=== PATIENT | male | born 1975 ===

== ENCOUNTER 2024-03-26 11:01 | Emergency (ER) | payer BC, SELFPAY ==
[2024-03-26 11:14] VITALS: BP 144/86
--- NOTE | 2024-03-26 11:43 | ED.GENMED ---
History of Present Illness
General
Chief Complaint: Head Injury
Source: patient
Exam Limitations: none
Time Seen by Provider: 03/26/24 11:37
Nursing documentation reviewed up to this point in time: agreed with
History of Present Illness
History of Present Illness:
48 y/o M with h/o CAD, ID s/p PCI
on plavix
here with headache and R sided neck pain after injury last night while playing ice hockey, he slid into the boards, thinks he hit his legs first and then head
was wearing helmet
no LOC
was ok last night
woke up with mild headache, nausea, brain fog, right sided neck pain
no numbnes/tingling/weakness, fever, chills vision changes, passing out, amnesia
Past History
Past History
ED Past Medical History: CAD, Hypercholesterolemia and ID
ED Past Surgical History: None
Social History
Tobacco: Non-smoker
Alcohol: None
Review of Systems
Review of Systems
Allergies reviewed?: Yes
All Other Systems: Not applicable
Phy Exam
Physical Exam
Physical Exam:
GENERAL: Alert , in no apparent distress
HEAD: NCAT
NECK: no midline tenderness, active ROM intact right-sided paraspinal and trapezius tenderness on the right
EYE: pupils equal and reactive, EOMs intact.
ENT: o/p clr, mmm. no hemotympanum
CARDIAC: Regular rate and rhythm, no edema
LUNGS: Clear breath sounds bilaterally, no acute respiratory distress, no wheezes/rales/rhonchi
ABDOMEN: Soft, without focal tenderness, no r/g, no cvat
NEUROLOGICAL: Alert and oriented, no focal neuro deficits, CN intact, 5/5 strength, sensation intact
SKIN: Warm and dry,
MUSCULOSKELETAL: No edema, well perfused.
PSYCH: Normal and appropriate interaction.
Course
Orders/Labs/Results
Orders:
Orders
03/26/24 11:[address] [CT Head W/o Iv Contrast] Urgent
Comment:
Reason For Exam: fall on plavix
03/26/24 11:49
CT Cervical Spine W/o Iv Contr Urgent
Comment:
Reason For Exam: neck pain s/p hockey injury
Vital Signs
Initial and Last Documented VS:
Initial Vital Signs
Temp Pulse Resp BP Pulse Ox
98.5 F 82 18 144/86 97
03/26/24 11:14 03/26/24 11:14 03/26/24 11:14 03/26/24 11:14 03/26/24 11:14
Last Documented Vital Signs
Temp Pulse Resp BP Pulse Ox
98.5 F 70 18 138/87 98
03/26/24 11:14 03/26/24 13:33 03/26/24 11:14 03/26/24 13:33 03/26/24 13:33
MDM/Problems Addressed
Differential Diagnosis Includes:
concussion, cervical strain
MDM/Problems Addressed:
48 y/o M
helmet yetserday fall into the boards while playing hocket
no loc
on plavix
today woke up with brain fog, headache,nausea, lightheadendsss, mild symptoms and some right sided neck soreness
no weakness/numbness tinging
on exa neuro intact
more right sided trap tednerness
ct head shows ? chiaric malformation but otherwisse neg
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
pt was unaware of this
givencopyies of reports
f/u with ortho/spine and pcp
*Critical Care Note
Total Time (30-74mins, 75-104mins- exclusive of procedures): Not Applicable
ED Attending Note
-
Portions of this chart may have been created with voice recognition software.� Occasional wrong word or��sound alike� substitutions may have occurred due to the inherent limitations of voice recognition software.
Discharge Plan
Departure
Patient Disposition: Home (Routine Discharge)
Date of Disposition: 03/26/24
Time of Disposition: 13:25
Patient with high blood pressure during this ER visit?: No
Condition: Fair
Covid-19: Not Applicable
Discharge Problem:
Concussion, Cervical sprain
Instructions: Concussion, Adult (DC), Cervical Sprain ED
Prescriptions:
No Action
nitroglycerin 0.4 MG tablet, sublingual
0.4 mg sublingual [id number] PRN (Reason: chest pain ) Qty: 25 5RF
atorvastatin 40 MG tablet
40 mg PO QPM
aspirin 81 MG tablet,delayed release (DR/EC)
81 mg PO DAILY
ticagrelor [Brilinta] 90 MG tablet
90 mg PO BID
amoxicillin-pot clavulanate 875-125 mg tablet
1 tab PO BID Qty: 20 0RF
Referrals:
Hang Carter, DO [Family Provider] - Follow up in 2-3 days
Stand Alone Forms: Return to Work
Activity Restrictions/Additional Instructions:
You likely have a mild concussion
for this we recommend 48 hours of brain rest to help your brain heal and your headache improve.
also use tylenol every 6 hours
for your neck, heat off and on as needed.
After 48 hours he can return to work
if you are getting headaches, you may need to stop work early. You need to see your family doctor to be cleared to return back to hockey
For your neck you likely sprained the muscles. You can apply heat, take Tylenol, rest. Return for any concerns
THERE WAS A SMALL IRREGULARITY IN YOUR CERVICAL SPINE THAT IS LIKEY A CONGENTIAL VARIANT
FOLLOW UP WITH ORTHOPEDICS
return to the er for: worsening pain, vomiting, confusion, weakness, numbness/tingling in arms or legs or any concerns.
Interventions
Interventions:
*Risk Screen - Suicide Last Done: 03/26/24 11:14
*General Assessment Last Done: 03/26/24 11:14
*Neglect/Abuse Screening Last Done: 03/26/24 11:14
*Nursing Disposition Last Done: 03/26/24 13:33
ED- Neurological Assessment Last Done: 03/26/24 13:29
ED-Skin Assessment Last Done: 03/26/24 13:29
Discharge Date and Time
Discharge Date/Time: 03/26/24 13:41
Print Language: [email or web address]
[2024-03-26 13:29] VITALS: BP 138/87
[2024-03-26 13:33] VITALS: BP 138/87
== END 2024-03-26 13:41 | disposition home or self-care (01) ==
LOC: EMR 11:01
PROVIDERS: EMERGENCY PHYSICIAN Student in an Organized Health Care Education/Training Program; FAMILY PHYSICIAN Family Medicine
DX: S06.0X0A Concussion without loss of consciousness, initial encounter (principal); R11.0 Nausea; W18.39XA Other fall on same level, initial encounter; Y93.22 Activity, ice hockey; S13.4XXA Sprain of ligaments of cervical spine, initial encounter; I25.10 Atherosclerotic heart disease of native coronary artery without angina pectoris; E78.00 Pure hypercholesterolemia, unspecified; K58.9 Irritable bowel syndrome, unspecified; F41.9 Anxiety disorder, unspecified; F32.A Depression, unspecified; I25.2 Old myocardial infarction; Z95.5 Presence of coronary angioplasty implant and graft
CPT/HCPCS: 99284; 70450; 72125

== ENCOUNTER 2024-12-22 08:09 | Emergency (ER) | payer BC, SELFPAY ==
[2024-12-22 08:10] VITALS: BP 157/92
[2024-12-22 09:54] VITALS: BMI 25.8
[2024-12-22 10:09] LABS: % Basophils 0.3 % (0-2); % Eosinophils 0.2 % (0-6); % Immature Granulocytes 0.2 % (0-0.5); % Monocytes 8.5 % (1.7-9.3); % Neutrophils 82.8 % (42.2-75.2); Hematocrit 44.1 % (39.0-52.0); Hemoglobin 14.8 g/dL (13.0-18.0); Mean Corp Hgb Conc. 33.6 g/dL (33.0-37.0); Mean Corpuscular Hgb 27.4 pg (27.0-31.0); Mean Corpuscular Volume 81.7 fL (80.0-94.0); Mean Platelet Volume 10.7 fL (7.4-10.4); Nucleated Red Blood Cells % 0 % (-); Platelet Count 170 10^3/uL (130-400); Red Cell Dist. Width 12.7 % (11.5-14.5); White Blood Cell Count 12.1 10^3/uL (4.8-10.8)
[2024-12-22 10:24] LABS: ALT (SGPT) 20 U/L (0-50); AST (SGOT) 17 U/L (17-59); Albumin 4.3 g/dl (3.5-5.0); Alkaline Phosphatase 79 U/L (38-126); Blood Urea Nitrogen 14 mg/dl (9-20); Calcium 9.6 mg/dl (8.4-10.2); Carbon Dioxide 29 mmol/L (22-30); Chloride 103 mmol/L (98-107); Estimated Creatinine Clearance 99 ml/min; Glucose 121 mg/dl (70-99); Lipase 71 U/L (23-300); Potassium 4.1 mmol/L (3.5-5.1); Sodium 140 mmol/L (135-145); Total Bilirubin 0.8 mg/dl (0.2-1.3); Total Protein 6.9 g/dl (6.3-8.2); eGFR > 60.00
--- NOTE | 2024-12-22 10:28 | ED.GENMED ---
History of Present Illness
General
Chief Complaint: Abdominal Symptoms
Source: patient
Time Seen by Provider: 12/22/24 08:48
History of Present Illness
History of Present Illness:
49-year-old male presents to the emergency room complaining of pain in his lower abdomen. Pain began yesterday. He rates it as a 6 out of 10. Movement makes it worse. He has not had any fever or chills. He denies any nausea, vomiting or
diarrhea. Patient had diverticulitis once about a year ago and this feels similar. He has not had any previous abdominal surgeries. He does have a history of an WA for which he has stents and he does take Plavix.
Past History
Past History
ED Past Medical History: CAD, Hypercholesterolemia and WA
ED Past Surgical History: None
Social History
Tobacco: Non-smoker
Alcohol: None
Phy Exam
Physical Exam
Physical Exam:
General: Awake, Alert, Oriented X3. No acute distress.
Vitals: unremarkable
Head: Atraumatic
Eyes: Pupils equal, EOMI
Throat: Airway intact, no exudates
Neck: Trachea midline
Lungs: Clear and equal b/l
Heart: Regular rate, no murmurs
Abd: Soft, moderate tenderness both right and left lower abdominal quadrant, No pulsatile mass
Neuro: Nonfocal
Skin: Warm, dry, no rash
Extremities: pulses equal b/l, no edema
Course
Orders/Labs/Results
Orders:
Orders
12/22/24 09:45
IV Insert/Care/Rem.- Treatment PRN
12/22/24 09:52
Complete Blood Count/With Diff Urgent
Comprehensive Metabolic Panel Urgent
Lipase Urgent
Urinalysis Reflex To Culture Urgent
Date Specimen was Collected: 12/22/24
Time Specimen was Collected: 09:45
Urine Microscopic Reflex Cult Urgent
12/22/24 10:25
CT Abd/Pel (IV only)-DH only Urgent
Comment:
Reason For Exam: lower abd pain
0.9% Sodium Chloride 1000 ml [Nss] 1,000 ml IV BOLUS
Ketorolac [Toradol] 15 mg IV NOW STA
12/22/24 14:31
Amoxicillin 875 mg/Clav 125 mg [Augmentin 875 mg/125 mg] 1 tablet PO NOW STA
Abnormal Lab Results
12/22/24
09:52
WBC 12.1 H 10^3/uL
(4.8-10.8)
MPV 10.7 H fL
(7.4-10.4)
Absolute Neuts (auto) 10.0 H 10^3/uL
(1.4-6.5)
Absolute Lymphs (auto) 1.0 L 10^3/uL
(1.2-3.4)
Absolute Monos (auto) 1.0 H 10^3/uL
(0.1-0.6)
Neutrophils % 82.8 H %
(42.2-75.2)
Lymphocytes % 8.0 L %
(20.5-51.1)
Glucose 121 H mg/dl
(70-99)
Ur Occult Blood Reflex 3+ A
(Negative)
Urine RBC 7-10 A /HPF
(0-2)
12/22/24 09:52
12/22/24 09:52
Vital Signs
Initial and Last Documented VS:
Initial Vital Signs
Temp Pulse Resp BP Pulse Ox
98.4 F 89 20 157/92 99
12/22/24 08:10 12/22/24 08:10 12/22/24 08:10 12/22/24 08:10 12/22/24 08:10
Last Documented Vital Signs
Temp Pulse Resp BP Pulse Ox
98.4 F 81 18 144/91 98
12/22/24 08:10 12/22/24 13:36 12/22/24 13:36 12/22/24 13:36 12/22/24 13:36
MDM/Problems Addressed
Differential Diagnosis Includes:
Diverticulitis, diverticular abscess, appendicitis
MDM/Problems Addressed:
Patient presents with abdominal pain. He is hemodynamically stable. Labs show mild elevated white blood cell count. CT consistent with uncomplicated diverticulitis. Will discharge on oral antibiotics.
*Radiology
Radiology exam reviewed: radiology read reviewed
*Pulse Oximetry
Patient hypoxic: no
*Critical Care Note
Total Time (30-74mins, 75-104mins- exclusive of procedures): Not Applicable
ED Attending Note
-
Portions of this chart may have been created with voice recognition software.� Occasional wrong word or��sound alike� substitutions may have occurred due to the inherent limitations of voice recognition software.
Discharge Plan
Departure
Patient Disposition: Home (Routine Discharge)
Date of Disposition: 12/22/24
Time of Disposition: 14:29
Patient with high blood pressure during this ER visit?: Yes
Condition: Good
Discharge Problem:
Diverticulitis
Instructions: Diverticulitis, BLOOD PRESSURE
Prescriptions:
New
amoxicillin-pot clavulanate 875-125 mg tablet
1 tab PO BID Qty: 14 0RF
oxycodone 5 mg tablet
5 mg PO Q6H PRN (Reason: Pain) Qty: 12 0RF
No Action
nitroglycerin 0.4 MG tablet, sublingual
0.4 mg sublingual [id number] PRN (Reason: chest pain ) Qty: 25 5RF
atorvastatin 40 MG tablet
40 mg PO QPM
aspirin 81 MG tablet,delayed release (DR/EC)
81 mg PO DAILY
ticagrelor [Brilinta] 90 MG tablet
90 mg PO BID
amoxicillin-pot clavulanate 875-125 mg tablet
1 tab PO BID Qty: 20 0RF
Referrals:
Hang Carter, [Family Provider] -
Srikanth Mauricio MD [Active] -
Activity Restrictions/Additional Instructions:
You have uncomplicated diverticulitis. You should take the antibiotics prescribed for 7 days. I have given you the contact information for Dr. Mauricio who is one of our colorectal surgeons. Because you have had a couple episodes in a relatively
short period of time I think it is for you follow-up with him.
Interventions
Interventions:
*Risk Screen - Suicide Last Done: 12/22/24 08:12
*General Assessment Last Done: 12/22/24 09:59
*Neglect/Abuse Screening Last Done: 12/22/24 08:12
*ED- Fall Risk Assessment Last Done: 12/22/24 09:59
*ED COVID-19 Vaccine History Last Done: 12/22/24 09:59
*Nursing Disposition Last Done: 12/22/24 14:44
TO-Zierop-Ijzlouasgx Assessment Last Done: 12/22/24 13:37
Discharge Date and Time
Discharge Date/Time: 12/22/24 14:47
Print Language: [place]ORU[place]
[2024-12-22 10:39] LABS: Urine Albumin Negative (Neg - Trace); Urine Bilirubin Negative (Negative); Urine Character Clear (Clear); Urine Color Yellow; Urine Glucose Negative (Negative); Urine Ketone Negative (Negative); Urine Leukocyte Negative (Negative); Urine Nitrite Negative (Negative); Urine Occult Blood 3+ (Negative); Urine Specific Gravity 1.015 (<1.030); Urine Urobilinogen Negative (Neg - 1+)
[2024-12-22 11:01] LABS: Urine Squamous Cell None seen /LPF (Few); Urine White Cell None Seen /HPF (0-5)
[2024-12-22] MEDS: NSS 1000 IV (11:03)
[2024-12-22] MEDS: TORADOL 15 MG IV (11:03)
[2024-12-22 13:36] VITALS: BP 144/91
[2024-12-22] MEDS: AUGMENTIN 875 MG/125 MG 1 TABLET PO (14:40)
== END 2024-12-22 14:47 | disposition home or self-care (01) ==
LOC: EMR 08:09
PROVIDERS: EMERGENCY PHYSICIAN Emergency Medicine; FAMILY PHYSICIAN Family Medicine
DX: K57.32 Diverticulitis of large intestine without perforation or abscess without bleeding (principal); I25.10 Atherosclerotic heart disease of native coronary artery without angina pectoris; E78.00 Pure hypercholesterolemia, unspecified; I25.2 Old myocardial infarction
CPT/HCPCS: 96374; 96361; 99284; 74177; 80053; 81003; 81015; 83690; 85025; Q9967

== ENCOUNTER 2025-05-28 06:23 | Day surgery (SDC) | payer BC, SELFPAY | END 2025-05-28 10:02 | disposition home or self-care (01) | LOC: GI 06:23 | PROVIDERS: ATTENDING PHYSICIAN Surgery; FAMILY PHYSICIAN Family Medicine | DX: Z12.11 Encounter for screening for malignant neoplasm of colon (principal); K57.30 Diverticulosis of large intestine without perforation or abscess without bleeding; K62.89 Other specified diseases of anus and rectum; K64.8 Other hemorrhoids; K56.2 Volvulus; Z79.02 Long term (current) use of antithrombotics/antiplatelets | CPT/HCPCS: 45380; 88305 ==